=== PATIENT | female | born 1980 | race Asian ===

== ENCOUNTER 2019-03-01 06:30 | Inpatient (IN) | payer SELFPAY ==
[~2019-03-01] VITALS: Ht 161 cm; Wt 73.5 kg
[2019-03-01] MEDS ORDERED: PREN-380 PO (07:10)
[2019-03-01] MEDS ORDERED: CITRIC ACID/SODIUM CITRATE 30 ML UDC PO SCH (07:10)
[2019-03-01] MEDS ORDERED: CALC600T7 PO (07:10)
[2019-03-01 07:39] LABS: BASOPHILS % (AUTO) 0.4 % (0.0-2.0); EOSINOPHILS # (AUTO) 0.1 K/uL (0-0.4); EOSINOPHILS % (AUTO) 1.4 % (0.0-4.0); HEMATOCRIT 37.4 % (36-48); HEMOGLOBIN 12.8 g/dL (12.0-16.0); LYMPHOCYTES # (AUTO) 1.3 K/uL (2.5-16.5); LYMPHOCYTES % (AUTO) 17.7 % (20.5-51.1); MEAN CORPUSCULAR HEMOGLOBIN 31 pg (27-31); MEAN CORPUSCULAR HGB CONC 34 g/dL (33-37); MEAN CORPUSCULAR VOLUME 89.7 fL (80-94); MONOCYTES # (AUTO) 0.6 K/uL (0.8-1.0); MONOCYTES % (AUTO) 8.4 % (1.7-9.3); NEUTROPHILS # (AUTO) 5.1 K/uL (1.8-7.7); NEUTROPHILS % (AUTO) 72.1 % (42.2-75.2); PLATELET COUNT (AUTO) 176 K/uL (140-450); RED BLOOD CELL COUNT(AUTO) 4.17 MIL/uL (4.20-5.40); RED CELL DISTRIBUTION WIDTH 13.7 % (11.6-13.7); WHITE BLOOD COUNT (AUTO) 7.1 K/uL (4.8-10.8)
[2019-03-01] MEDS: LACTATED RINGERS 1,000 ML IV SCH ×2 (08:02→09:39)
[2019-03-01 08:18] VITALS: BP 117/69
--- NOTE | 2019-03-01 08:21 | NUR ---
PATIENT HAS BEEN SCREENED AND CATEGORIZED LOW NUTRITION RISK. PATIENT WILL BE SEEN WITHIN 7 DAYS OF ADMISSION. 03/07/[address]
[2019-03-01] MEDS ORDERED: CITRIC ACID/SODIUM CITRATE 30 ML UDC ONE (09:52)
[2019-03-01] MEDS ORDERED: MORPHINE PRES FREE 10 MG/10 ML AMP IV ONE (10:13)
[2019-03-01 10:35] LABS: APPEARANCE,URINE CLEAR (CLEAR); BILIRUBIN,URINE NEGATIVE (NEGATIVE); BLOOD, URINE TRACE-L (NEGATIVE); COLOR,URINE YELLOW (YELLOW); LEUKOCYTE ESTERASE ,URINE 1+ (NEGATIVE); NITRITE, URINE NEGATIVE (NEGATIVE); UGLUCOSE NEGATIVE (NEGATIVE)
[2019-03-01] MEDS ORDERED: diphenhydrAMINE 50 MG/ML VIAL IVP PRN (10:35)
[2019-03-01] MEDS ORDERED: KETOROLAC 30 MG/ML VIAL IVP PRN (10:35)
[2019-03-01] MEDS ORDERED: NALOXONE 0.4 MG/ML VIAL IVP PRN (10:35)
[2019-03-01] MEDS ORDERED: ONDANSETRON 4 MG/2 ML VIAL IVP PRN (10:35)
[2019-03-01] MEDS ORDERED: ONDANSETRON 4 MG/2 ML VIAL ONE (10:45)
[2019-03-01 10:52] LABS: RBC,URINE 0-5 /HPF (0-5); WBC,URINE 0-5 /HPF (0-5)
[2019-03-01] MEDS ORDERED: HYDROmorphone 1 MG/ML AMP IVP PRN (13:55)
[2019-03-01] MEDS ORDERED: MEASLES, MUMPS, AND RUBELLA 1 VIAL SQVAC PRN (13:55)
[2019-03-01] MEDS ORDERED: BISACODYL 5 MG TABEC PO SCH (14:30)
[2019-03-01] MEDS: KETOROLAC 30 MG/ML VIAL IVP PRN (17:37)
[2019-03-01] MEDS ORDERED: OXYTOCIN 20 UNITS/LR PREMIX 1,000 ML IV ONE (23:25)
[2019-03-01] MEDS: OXYTOCIN 20 UNITS in LACTATED RINGERS 1,000 ML IV SCH (23:49)
[2019-03-02] MEDS: KETOROLAC 30 MG/ML VIAL IVP PRN ×2 (05:20→18:20)
[2019-03-02] MEDS ORDERED: OXYTOCIN 20 UNITS/LR PREMIX 1,000 ML IV ONE (06:44)
[2019-03-02] MEDS: OXYTOCIN 20 UNITS in LACTATED RINGERS 1,000 ML IV SCH (07:15)
[2019-03-02] MEDS ORDERED: BISACODYL 5 MG TABEC PO SCH ×2 (09:00)
[2019-03-02 09:50] LABS: BASOPHILS % (AUTO) 0.3 % (0.0-2.0); EOSINOPHILS # (AUTO) 0.1 K/uL (0-0.4); EOSINOPHILS % (AUTO) 0.7 % (0.0-4.0); HEMATOCRIT 31.5 % (36-48); HEMOGLOBIN 10.8 g/dL (12.0-16.0); LYMPHOCYTES # (AUTO) 0.7 K/uL (2.5-16.5); LYMPHOCYTES % (AUTO) 9.5 % (20.5-51.1); MEAN CORPUSCULAR HEMOGLOBIN 31 pg (27-31); MEAN CORPUSCULAR HGB CONC 34 g/dL (33-37); MEAN CORPUSCULAR VOLUME 89.9 fL (80-94); MONOCYTES # (AUTO) 0.6 K/uL (0.8-1.0); MONOCYTES % (AUTO) 7.4 % (1.7-9.3); NEUTROPHILS # (AUTO) 6.3 K/uL (1.8-7.7); NEUTROPHILS % (AUTO) 82.1 % (42.2-75.2); PLATELET COUNT (AUTO) 153 K/uL (140-450); RED CELL DISTRIBUTION WIDTH 13.5 % (11.6-13.7); WHITE BLOOD COUNT (AUTO) 7.7 K/uL (4.8-10.8)
[2019-03-02] MEDS ORDERED: ACETAMINOPHEN 325 MG TAB PO PRN (22:00)
[2019-03-03] MEDS: KETOROLAC 30 MG/ML VIAL IVP PRN (01:00)
[2019-03-03] MEDS ORDERED: IBUPROFEN 600 MG TAB PO PRN (08:00)
[2019-03-03] MEDS ORDERED: SODIUM PHOSPHATE 118 ML ENEM RC PRN (08:00)
[2019-03-03] MEDS ORDERED: DOCUSATE SODIUM 100 MG GELCAP PO SCH (09:00)
[2019-03-03] MEDS ORDERED: FERR325E14 PO (16:11)
[2019-03-03] MEDS ORDERED: IBUP-1842 PO (16:12)
[2019-03-03] MEDS ORDERED: SIMETHICONE 80 MG TAB.CHEW PO SCH (17:00)
== END 2019-03-03 20:50 | disposition home or self-care (01) | DRG 788 ==
LOC: MLD 06:30 → MFCC 09:55
PROVIDERS: ADMIT Obstetrics & Gynecology; ATTEND Obstetrics & Gynecology
PROC: 10D00Z1 Extraction of Products of Conception, Low, Open Approach (ICD-10-PCS; principal; 2019-03-01 10:00)
PROC: 3E0234Z Introduction of Serum, Toxoid and Vaccine into Muscle, Percutaneous Approach (ICD-10-PCS; 2019-03-02)
DX: O34.13 Maternal care for benign tumor of corpus uteri, third trimester (principal); O69.81X0 Labor and delivery complicated by cord around neck, without compression, not applicable or unspecified; D25.9 Leiomyoma of uterus, unspecified; Z37.0 Single live birth; Z23 Encounter for immunization; Z3A.38 38 weeks gestation of pregnancy; Z82.49 Family history of ischemic heart disease and other diseases of the circulatory system
CPT/HCPCS: 36415; 81001; 85025; 86592; 86886; 86900; 86901; 87081; 87086; 90715; J0690; J1885; J2270; J2405; J2590; J7060; J7120